=== PATIENT | male | born 1995 | race Caucasian/White ===

== ENCOUNTER → 2019-11-17 12:33 | Outpatient (CLI) | payer OTHER, SELFPAY ==
[2019-11-17 13:18] LABS: Basophils # 0.1 K/mm3 (0-0.2); Basophils % 1.8 % (0.1-2.0); Eosinophils % 0.4 % (0.1-12.0); Hematocrit 45.9 % (42.0-52.0); Hemoglobin 15.3 g/dL (14.1-18.0); Lymphocytes # 0.9 K/mm3 (0.7-4.5); Lymphocytes % 22.1 % (10-50); Mean Corpuscular HGB Conc 33.3 g/dL (31.8-35.4); Mean Corpuscular Volume 90.1 fl (80-94); Mean Platelet Volume 7.8 fl (7.4-10.4); Monocytes # 0.7 K/mm3 (0.1-1.0); Monocytes % 18.1 % (1.7-9.3); Neutrophils # 2.3 K/mm3 (1.8-7.8); Neutrophils % 57.5 % (37.0-80.0); Platelet Count 245 K/mm3 (142-424); Red Blood Count 5.09 M/mm3 (4.60-6.20); Red Cell Distribution Width 13.6 % (11.5-17.5)
[2019-11-18 14:18] LABS: Covid-19 Nasal PCR Sendout Lex POSITIVE
== END ==
PROVIDERS: PCP Nurse Practitioner; Visit Provider Nurse Practitioner
DX: Z20.828 Contact with and (suspected) exposure to other viral communicable diseases (principal); U07.1 COVID-19
CPT/HCPCS: 36415; 85025; U0004

== ENCOUNTER → 2020-12-18 10:34 | Outpatient (CLI) | payer OTHER, SELFPAY ==
[2020-12-18 11:11] LABS: Basophils # 0.1 K/mm3 (0-0.2); Basophils % 0.4 % (0.1-2.0); Eosinophils # 0.2 K/mm3 (0.0-0.4); Eosinophils % 1.3 % (0.1-12.0); Hematocrit 44.9 % (42.0-52.0); Hemoglobin 15.4 g/dL (14.1-18.0); Lymphocytes # 1.8 K/mm3 (0.7-4.5); Lymphocytes % 13.4 % (10-50); Mean Corpuscular HGB Conc 34.2 g/dL (31.8-35.4); Mean Corpuscular Hemoglobin 30.1 pg (27.0-31.2); Mean Corpuscular Volume 87.9 fl (80-94); Mean Platelet Volume 8.2 fl (7.4-10.4); Monocytes # 0.9 K/mm3 (0.1-1.0); Monocytes % 7.1 % (1.7-9.3); Neutrophils # 10.3 K/mm3 (1.8-7.8); Neutrophils % 77.9 % (37.0-80.0); Platelet Count 319 K/mm3 (142-424); Red Cell Distribution Width 13.5 % (11.5-17.5); White Blood Count 13.2 K/mm3 (4.8-10.8)
[2020-12-18 13:02] LABS: Strep Scrn Group A (Rapid) Negative (Negative)
== END ==
PROVIDERS: PCP Nurse Practitioner; Visit Provider Nurse Practitioner
DX: Z20.822 Contact with and (suspected) exposure to COVID-19 (principal); U07.1 COVID-19
CPT/HCPCS: 36415; 85025; 87275; 87276; 87430; C9803; U0003; U0005

== ENCOUNTER → 2022-02-25 16:30 | Outpatient (CLI) | payer OTHER, SELFPAY ==
[2022-02-25 20:06] LABS: Basophils # 0.1 K/mm3 (0-0.2); Basophils % 0.7 % (0.1-2.0); Eosinophils # 0.1 K/mm3 (0.0-0.4); Eosinophils % 1.1 % (0.1-12.0); Hematocrit 43.3 % (42.0-52.0); Hemoglobin 14.4 g/dL (14.1-18.0); Lymphocytes # 2.4 K/mm3 (0.7-4.5); Lymphocytes % 33.8 % (10-50); Mean Corpuscular HGB Conc 33.3 g/dL (31.8-35.4); Mean Corpuscular Hemoglobin 28.8 pg (27.0-31.2); Mean Corpuscular Volume 86.4 fl (80-94); Mean Platelet Volume 9.1 fl (7.4-10.4); Monocytes # 0.4 K/mm3 (0.1-1.0); Monocytes % 5.5 % (1.7-9.3); Neutrophils # 4.2 K/mm3 (1.8-7.8); Neutrophils % 58.9 % (37.0-80.0); Platelet Count 323 K/mm3 (142-424); Red Blood Count 5.01 M/mm3 (4.60-6.20); White Blood Count 7.1 K/mm3 (4.8-10.8)
[2022-02-27 05:36] LABS: HSV 1 IgG, Type Spec <0.91 index (0.00-0.90); HSV 2 IgG, Type Spec <0.91 index (0.00-0.90)
[2022-02-27 10:20] LABS: HIV Screen 4th Generation wRfx Non Reactive (Non Reactive); Rapid Plasma Reagin Ab Titer Non Reactive (NonRea<1:1)
[2022-02-28 00:06] LABS: Neisseria gonorrhoeae, NAA Negative (Negative)
[2022-03-11 20:37] LABS: Trichomonas Vaginalis, NAA NEGATIVE
== END ==
PROVIDERS: PCP Nurse Practitioner; Visit Provider Nurse Practitioner
DX: N50.812 Left testicular pain (principal); R36.1 Hematospermia; Z11.4 Encounter for screening for human immunodeficiency virus [HIV]
CPT/HCPCS: 85025; 86592; 86695; 86703; 86790; 87491; 87591; G0432

== ENCOUNTER → 2022-03-11 08:47 | Outpatient (CLI) | payer OTHER, SELFPAY ==
--- NOTE | 2022-03-11 08:52 | US_ITS ---
FINAL REPORT TECHNIQUE: Ultrasound images of the testicles were obtained bilaterally. Color Doppler images were obtained. CLINICAL HISTORY: .intermittent lt test pain FINDINGS: The right testicle measures 4.5 x 3.0 x 2.2 cm. The left testicle measures 4.4 x 3.1 x 2.0 cm. Arterial flow is identified bilaterally. No intratesticular masses are identified. IMPRESSION: No evidence of testicular torsion or mass. Reviewed, Interpreted and Dictated by Alexander Olson MD Transcribed by Kathryn Mac Authenticated and [facility]
== END ==
PROVIDERS: PCP Nurse Practitioner; Visit Provider Nurse Practitioner
DX: N50.812 Left testicular pain (principal); R36.1 Hematospermia
CPT/HCPCS: 76870

== ENCOUNTER → 2022-09-02 23:34 | Outpatient (CLI) | payer OTHER, SELFPAY | PROVIDERS: PCP Nurse Practitioner; Visit Provider Nurse Practitioner | DX: J02.9 Acute pharyngitis, unspecified (principal) ==

== ENCOUNTER → 2022-10-01 23:21 | Outpatient (CLI) | payer OTHER, SELFPAY ==
[2022-10-01 18:52] LABS: Basophils % 0.4 % (0.1-2.0); Eosinophils # 0.1 K/mm3 (0.0-0.4); Eosinophils % 2.8 % (0.1-12.0); Hematocrit 48.1 % (42.0-52.0); Hemoglobin 15.2 g/dL (14.1-18.0); Lymphocytes # 2.1 K/mm3 (0.7-4.5); Lymphocytes % 39.1 % (10-50); Mean Corpuscular HGB Conc 31.6 g/dL (31.8-35.4); Mean Corpuscular Hemoglobin 28.7 pg (27.0-31.2); Mean Corpuscular Volume 90.8 fl (80-94); Mean Platelet Volume 9.3 fl (7.4-10.4); Monocytes # 0.4 K/mm3 (0.1-1.0); Monocytes % 8.4 % (1.7-9.3); Neutrophils # 2.6 K/mm3 (1.8-7.8); Neutrophils % 49.2 % (37.0-80.0); Platelet Count 326 K/mm3 (142-424); Red Cell Distribution Width 13.8 % (11.5-17.5); White Blood Count 5.3 K/mm3 (4.8-10.8)
[2022-10-01 18:57] LABS: Alanine Aminotransferase 27 U/L (12-78); Albumin Level 4.7 g/dl (3.5-5.0); Albumin/Globulin Ratio 1.4 (1.1-1.8); Alkaline Phosphatase 78 U/L (38-126); Anion Gap 13.4 mEq/L (5-15); Aspartate Amino Transferase 28 U/L (17-59); Bilirubin,Total 0.3 mg/dl (0.2-1.3); Blood Urea Nitrogen 12 mg/dl (9-20); Calcium 9.6 mg/dl (8.4-10.2); Carbon Dioxide 28 mmol/L (22.0-30.0); Chloride 103 mmol/L (98-107); Estimated Glomerular Filt Rate 114 ml/min (>60); GFR (African American) 138 ML/MIN (>60); Globulin 3.3 g/dL (1.3-3.2); Glucose 79 mg/dl (74-100); Potassium 4.4 mmoL/L (3.5-5.1); Sodium 140 mmol/L (136-145)
[2022-10-01 19:13] LABS: 25-OH Vitamin D, Total 44.9 ng/mL (30-100)
[2022-10-01 19:28] LABS: Thyroid Stimulating Hormone 2.29 uIU/mL (0.465-4.68)
[2022-10-01 19:47] LABS: Vitamin B12 451 pg/mL (239-931)
[2022-10-03 11:08] LABS: HBsAg Screen Negative (Negative); HCV Ab Non Reactive (Non Reactive); HIV Screen 4th Generation wRfx Non Reactive (Non Reactive); HSV 1 IgG, Type Spec <0.91 index (0.00-0.90); HSV 2 IgG, Type Spec <0.91 index (0.00-0.90); Hep A Ab, IGM Negative (Negative); Hep B Core Ab, IgM Negative (Negative)
[2022-10-03 11:14] LABS: Rapid Plasma Reagin Ab Titer Non Reactive (NonRea<1:1)
[2022-10-03 21:13] LABS: Neisseria gonorrhoeae, NAA Negative (Negative)
[2022-10-20 13:28] LABS: Trichomonas Vaginalis, NAA Negative
== END ==
PROVIDERS: PCP Nurse Practitioner; Visit Provider Nurse Practitioner
DX: L65.9 Nonscarring hair loss, unspecified (principal); Z11.3 Encounter for screening for infections with a predominantly sexual mode of transmission; Z13.0 Encounter for screening for diseases of the blood and blood-forming organs and certain disorders involving the immune mechanism; Z13.29 Encounter for screening for other suspected endocrine disorder; Z11.4 Encounter for screening for human immunodeficiency virus [HIV]
CPT/HCPCS: 80053; 80074; 82306; 82607; 84443; 85025; 86593; 86695; 86703; 86790; 87491; 87591; 87661; G0432

== ENCOUNTER 2023-11-05 10:17 | Outpatient (CLI) | payer OTHER, SELFPAY ==
[2023-11-05 18:19] LABS: Hemoglobin A1C 5.3 % (4.0-6.0)
[2023-11-05 18:47] LABS: Hemoglobin 15.3 g/dL (14.1-18.0); Mean Corpuscular HGB Conc 31.8 g/dL (31.8-35.4); Mean Corpuscular Hemoglobin 29.8 pg (27.0-31.2); Mean Corpuscular Volume 93.5 fl (80-94); Red Blood Count 5.14 M/mm3 (4.60-6.20); White Blood Count 4.5 K/mm3 (4.8-10.8)
[2023-11-05 18:48] LABS: Basophils % 2.6 % (0.1-2.0); Lymphocytes # 1.5 K/mm3 (0.7-4.5); Lymphocytes % 32.6 % (10-50); Mean Platelet Volume 8.4 fl (7.4-10.4); Monocytes % 7.7 % (1.7-9.3); Neutrophils # 2.3 K/mm3 (1.8-7.8); Neutrophils % 51.7 % (37.0-80.0); Platelet Count 277 K/mm3 (142-424)
[2023-11-05 18:49] LABS: Basophils # 0.1 K/mm3 (0-0.2); Eosinophils # 0.1 K/mm3 (0.0-0.4); Monocytes # 0.4 K/mm3 (0.1-1.0)
[2023-11-05 19:21] LABS: Albumin Level 4.6 g/dl (3.5-5.0); Chloride 102 mmol/L (98-107); Sodium 138 mmol/L (136-145)
[2023-11-05 19:22] LABS: Potassium 4.6 mmoL/L (3.5-5.1)
[2023-11-05 19:24] LABS: Alanine Aminotransferase 18 U/L (12-78); Albumin/Globulin Ratio 1.6 (1.1-1.8); Anion Gap 12.6 mEq/L (5-15); Aspartate Amino Transferase 25 U/L (17-59); Blood Urea Nitrogen 13 mg/dl (9-20); Carbon Dioxide 28 mmol/L (22.0-30.0); Estimated Glomerular Filt Rate 88 ml/min (>60); GFR (African American) 106 ML/MIN (>60); Globulin 2.8 g/dL (1.3-3.2); Total Protein,Serum 7.4 g/dl (6.3-8.2)
[2023-11-05 19:25] LABS: Alkaline Phosphatase 61 U/L (38-126); Bilirubin,Total 1.1 mg/dl (0.2-1.3); Calcium 9.1 mg/dl (8.4-10.2); Chol/HDL Ratio 2.9 (1-3.5); Cholesterol 176 mg/dl (140-200); Glucose 62 mg/dl (74-100); HDL Cholesterol 61 mg/dl (40-60); Triglycerides 70 mg/dl (30-150); VLDL Cholesterol 14 mg/dL (0-40)
[2023-11-05 19:36] LABS: Direct LDL Cholesterol 89.34 mg/dL (100-129)
[2023-11-05 19:47] LABS: Erythrocyte Sedimentation Rate 1 mm/hr (0-15)
[2023-11-05 19:56] LABS: Thyroid Stimulating Hormone 1.26 uIU/mL (0.465-4.68)
[2023-11-05 20:06] LABS: C-Reactive Protein < 0.3 mg/L (0-4)
[2023-11-05 21:17] LABS: Vitamin B12 541 pg/mL (239-931)
[2023-11-05 21:45] LABS: 25-OH Vitamin D, Total 50.4 ng/mL (30-100)
[2023-11-06 11:00] LABS: HIV (1&2) Antibody Rapid NONREACTIVE (NONREACTIVE)
[2023-11-07 10:14] LABS: HBsAg Screen Negative (Negative); HCV Ab Non Reactive (Non Reactive); Hep A Ab, IGM Negative (Negative); Hep B Core Ab, IgM Negative (Negative); Rapid Plasma Reagin Ab Titer Non Reactive titer (NonRea<1:1)
[2023-11-07 13:18] LABS: Anti-Centromere B Antibodies <0.2 AI (0.0-0.9); Anti-DNA (DS) Ab Qn 1 IU/mL (0-9); Anti-Jo-1 <0.2 AI (0.0-0.9); Anti-Smith Antibody <0.2 AI (0.0-0.9); Antichromatin Antibodies <0.2 AI (0.0-0.9); Antiscleroderma-70 Antibodies <0.2 AI (0.0-0.9); RNP Antibodies 0.4 AI (0.0-0.9); Sjogren's Anti-SS-A <0.2 AI (0.0-0.9); Sjogren's Anti-SS-B <0.2 AI (0.0-0.9)
[2023-11-07 21:40] LABS: Neisseria gonorrhoeae, NAA Negative (Negative)
[2023-11-08 06:13] LABS: Trichomonas Vaginalis, NAA Negative (Negative)
[2023-11-10 10:09] LABS: HSV-1 DNA Negative (Negative); HSV-2 DNA Negative (Negative)
== END 2023-11-05 23:59 | disposition home or self-care (01) ==
LOC: LAB.DROPOF 11-06 10:17
PROVIDERS: PCP Nurse Practitioner; Visit Provider Nurse Practitioner
DX: Z11.3 Encounter for screening for infections with a predominantly sexual mode of transmission (principal); R20.2 Paresthesia of skin
CPT/HCPCS: 80050; 80053; 80061; 80074; 82306; 82607; 83036; 84443; 85025; 85651; 86140; 86225; 86235; 86593; 87491; 87529; 87591; 87661